=== PATIENT | female | born 1970 | race African-American/Black ===

== ENCOUNTER → 2023-12-23 | Outpatient (REF) | payer OTHER ==
[~2023-12-23] MED LIST: IOPAMIDOL 370 MG/ML 100 ML INFUS..BTL INJ ONE; METOPROLOL TARTRATE INJ 1 MG/ML VIAL ONE; NITROGLYCERIN 0.4 MG SUBL ONE; SODIUM CHLORIDE 0.9% 100 ML ONE
== END ==
LOC: CT 09:24
PROVIDERS: ATTEND Internal Medicine Cardiovascular Disease
DX: R06.00 Dyspnea, unspecified (principal); I25.118 Atherosclerotic heart disease of native coronary artery with other forms of angina pectoris
CPT/HCPCS: 75574; J7050; Q9967